=== PATIENT | male | born 1965 | race Caucasian/White ===

== ENCOUNTER 2017-01-28 11:51 | Emergency (ER) | payer BC, OTHER, SELFPAY ==
[~2017-01-28] VITALS: Ht 177.8 cm; Wt 65.1 kg
[2017-01-28] MEDS ORDERED: OMEG1CAP23 PO (12:58)
[2017-01-28] MEDS ORDERED: MULT-204 PO (12:58)
[2017-01-28 13:55] LABS: BLOOD UREA NITROGEN 11 mg/dL (7-18)
[2017-01-28 14:00] LABS: IS PT STATUS REG ER OR PRE ER? YES
[2017-01-28 14:46] VITALS: BP 134/98
== END 2017-01-28 14:47 | disposition home or self-care (01) ==
LOC: ED 13:22
DX: R42 Dizziness and giddiness (principal); R20.2 Paresthesia of skin; F10.10 Alcohol abuse, uncomplicated
CPT/HCPCS: 36415; 80048; 82040; 84484; 85025; 93005; 99285